=== PATIENT | female | born 1950 | race Caucasian/White ===

== ENCOUNTER 2017-08-07 11:29 | Emergency (ER) | payer OTHER ==
[2017-08-07 13:24] VITALS: BP 125/78
--- NOTE | 2017-08-07 14:51 | UC ---
Eye Complaint HPI - HPI Summary HPI Summary: 66yo WF c/o B/L ocular erythema associated with yellow-green d/c x 1 week and left sinus pain with increasing drainage, 1 week after URI sx resolved. - History of Current Complaint Chief Complaint: UCGeneralIllness Stated Complaint: EYE,SINUS PAIN Time Seen by Provider: 08/07/17 13:37 Hx Obtained From: Patient Onset/Duration: Gradual Onset Timing: Constant Severity Initially: Moderate Severity Currently: Moderate Aggravating Factor(s): Nothing Alleviating Factor(s): Nothing Associated Signs And Symptoms: Positive: Drainage (Purulent) - Risk Factors Penetrating Injury Risk Factor: Negative - Allergies/Home Medications Allergies/Adverse Reactions: Allergies Allergy/AdvReac Type Severity Reaction Status Date / Time Penicillins Allergy Severe Anaphylatic Verified 08/07/17 13:24 Shock Sulfa Drugs Allergy Unknown Verified 08/07/17 13:24 Reaction Details PMH/Surg Hx/FS Hx/Imm Hx Previously Healthy: Yes - Surgical History Surgical History: Yes Surgery Procedure, Year, and Place: EXP LAP 1990. BREAST LT LUMPECTOMY 2001 - Social History Alcohol Use: Rare Substance Use Type: None Smoking Status (MU): Never Smoked Tobacco Review of Systems Constitutional: Negative Skin: Negative Eyes: Drainage, Eye Redness ENT: Sinus Pain/Tenderness, Other Respiratory: Negative Cardiovascular: Negative Gastrointestinal: Negative Genitourinary: Negative Motor: Negative Neurovascular: Negative Musculoskeletal: Negative Neurological: Negative Psychological: Negative All Other Systems Reviewed And Are Negative: Yes Physical Exam Triage Information Reviewed: Yes Appearance: No Pain Distress Vital Signs: Initial Vital Signs Temp 36.9 C 08/07/17 13:19 Pulse 95 08/07/17 13:19 Resp 18 08/07/17 13:19 BP 125/78 08/07/17 13:19 Pulse Ox 96 08/07/17 13:19 Vital Signs Reviewed: Yes Eye Exam: Other Eyes: Positive: Conjunctiva Inflamed - LEFT>right, Discharge - yellow green d/c L>R , conjunctivitis ENT Exam: Normal ENT: Positive: Pharynx normal, TMs normal, Sinus tenderness - Moderate left sinus tenderness Dental Exam: Normal Neck exam: Normal Neck: Positive: 1 Respiratory Exam: Normal Respiratory: Positive: Normal breath sounds Cardiovascular Exam: Normal Abdominal Exam: Normal Musculoskeletal Exam: Normal Neurological Exam: Normal Psychological Exam: Normal Skin Exam: Normal Eye Complaint Course/Dx - Differential Dx/Diagnosis Differential Diagnosis/HQI/PQRI: Conjunctivitis Provider Diagnoses: Conjunctivitis and sinusitis Discharge - Discharge Plan Condition: Stable Disposition: HOME Prescriptions: Azithromyxin UMA (NF) [Z-Uma (Zithromax) 250 mg tabs #6] 2 tab PO .TODAY, THEN 1 DAILY #6 tab Neomycin/Polymy/Dex OPTH.SUSP* [Maxitrol Opth Susp 0.1%*] 1 drop BOTH EYES TID 7 Days #1 bottle Patient Education Materials: Sinusitis (ED), Conjunctivitis (ED) Referrals: Bogdan Jorgensen MD [Primary Care Provider] - Additional Instructions: as tolerated
== END 2017-08-07 14:49 | disposition home or self-care (01) ==
LOC: UCEAST 11:29
DX: H10.33 Unspecified acute conjunctivitis, bilateral (principal); J32.9 Chronic sinusitis, unspecified; Z88.0 Allergy status to penicillin; Z88.2 Allergy status to sulfonamides
CPT/HCPCS: 87651; 99212; G0463

== ENCOUNTER 2017-12-06 08:19 | Day surgery (SDC) | payer OTHER ==
[~2017-12-06 08:19] MED LIST: Acetaminophen TAB* 325 MG PO PRN; Buffered Lidocaine 0.9% SYRIN* 5 ML/SYR SYRINGE INTRADERM ONE
[2017-12-06] MEDS ORDERED: acetaZOLAMIDE TAB* 250 MG ONE (09:03)
[2017-12-06] MEDS ORDERED: Ketorolac 0.5% OPHTH (NF) 0.5 % 5 ML BTL ONE (09:04)
[2017-12-06] MEDS ORDERED: Cyclopentolate 1% OPTH.SOL* 2 ML BTL ONE (09:04)
[2017-12-06] MEDS ORDERED: Phenylephrine 2.5% OPTH.SOL* 2 ML BTL ONE (09:04)
[2017-12-06] MEDS ORDERED: Proparacaine 0.5% OPHTH.SOL* 15 ML BTL ONE (09:04)
[2017-12-06] MEDS ORDERED: Lidocaine 1% MPF* 2 ML VIAL ONE (09:04)
[2017-12-06] MEDS ORDERED: Lidocaine 2% EPI 1:200000 MPF*10-20 ML VIAL ONE (09:04)
[2017-12-06] MEDS ORDERED: Povidone Iodine 5% OPTH* 30 ML BTL ONE (09:04)
[2017-12-06] MEDS ORDERED: Neomycin/Polymy/Dex OPTH.SUSP* MAXITROL 0.1% 5 ML ONE (09:04)
[2017-12-06] MEDS ORDERED: Midazolam* 1 MG/ML 5 ML VIAL (5 MG) ONE (09:33)
[2017-12-06] MEDS ORDERED: fentaNYL* 50 MCG/ML 2 ML VIAL (100 MCG VIAL) ONE (09:33)
[2017-12-06 11:22] VITALS: BP 103/42
--- NOTE | 2017-12-06 11:26 | OP ---
DATE OF OPERATION: 12/06/2017. DATE OF : 1950. SURGEON: Avila Huddleston M.D. PREOPERATIVE DIAGNOSIS: Cataract left eye. POSTOPERATIVE DIAGNOSIS: Cataract left eye. OPERATIVE PROCEDURE: Extracapsular cataract extraction with intraocular lens implant left eye. PROCEDURE: The patient was brought to the operating room after being given 1/2% Alcaine with epineph rine drops in the preoperative area. The eye was prepped and draped in the usual sterile fashion. S terile drape and eyelid speculum were placed. Again, topical 1/2% Alcaine with epinephrine was given . A paracentesis incision was made at the 3 o'clock position with the No.75 blade. Clear cornea inc ision 2.2 x 2.2-mm was created at the 6 o'clock position starting at the anterior limbus using the 2. 2-mm keratome. The anterior chamber was irrigated with 0.4 mL of 1% non-preservative intracameral li docaine and filled with DisCoVisc. A capsulorrhexis was completed using the cystotome and the Utrata forceps. Hydrodissection was performed with balanced salt solution. The lens nucleus was removed wi th the Phacoemulsification handpiece without incident. Cortex was removed with the irrigation-aspira tion handpiece. The capsular bag was re-inflated using DisCoVisc and an [id number] implant was insert ed with the shooter, oriented to the 158 degree meridian. Horizontal reference garrett were made with the patient in the preoperative area in the seated position. The irrigation-aspiration handpiece was used to remove all residual DisCoVisc. The eye was refilled with balanced salt solution and the wou nd checked and found to be watertight. Topical Maxitrol drops were given. [id number]/[facility] #: [id number]
== END 2017-12-06 11:19 | disposition home or self-care (01) ==
LOC: OREAST 08:19
PROVIDERS: ATTEND Specialist
DX: H25.12 Age-related nuclear cataract, left eye (principal); H26.491 Other secondary cataract, right eye; H35.371 Puckering of macula, right eye; E05.00 Thyrotoxicosis with diffuse goiter without thyrotoxic crisis or storm; H81.09 Meniere's disease, unspecified ear; M85.80 Other specified disorders of bone density and structure, unspecified site
CPT/HCPCS: A9270-GY; J2250; J3010; V2787